=== PATIENT | female | born 1960 | race Caucasian/White ===

== ENCOUNTER 2019-06-09 22:57 | Inpatient (IN) | payer OTHER ==
[~2019-06-09] VITALS: Ht 175.3 cm; Wt 108.6 kg
[~2019-06-09 22:57] MED LIST: CALC-98 PO; CELE100C PO; CETI10CA PO; ESOM20SU PO; FLUT1DIS3 IH; GABA600T7 PO; MONT10TA80 PO; SIMV10TA PO; TRAM50TA PO
--- NOTE | 2019-06-09 23:00 | ED.ADGEN ---
Past History Past Medical History: Arthritis, Asthma, GERD, High Cholesterol, Other Past Medical History anisocytosis Past Surgical History: Other Past Surgical History Carpal tunnel release x2 Smoking: Non-smoker Alcohol Use: Occasionally Drug Use: None Adult General Chief Complaint Chief Complaint " I have these episodes where I get really bad back pain.. that radiates to my chest.. I have arthritis and if I bang my back on a door threshold.. it seems to help the back spasm and pain.. and it goes away.." HPI HPI Patient is a 59 year old FEMALE who presents with above hx and complaints of mid back pain that radiates to chest . Has had several episodes of this pain off an on for weeks.. Tonight she has had two episodes..that were close together. Pt. follows at [facility]. Patient denies prior history of cardiac problems. Patient has history of hypertension. Patient has never smoked. Patient normally healthy. Patient immunosuppression. No history of cancer . She has history of GERD, elevated lipids, asthma , abnormal blood cells, and arthritis. No history of trauma. Review of Systems Review of Systems Constitutional: Denies fever or chills [] Eyes: Denies change in visual acuity, redness, or eye pain [] HENT: Denies nasal congestion or sore throat [] Respiratory: Denies cough or shortness of breath [] Cardiovascular: No additional information not addressed in HPI [] GI: Denies abdominal pain, nausea, vomiting, bloody stools or diarrhea [] : Denies dysuria or hematuria [] Musculoskeletal: Denies back pain or joint pain []complains of thoracic back pain Integument: Denies rash or skin lesions [] Neurologic: Denies headache, focal weakness or sensory changes [] Endocrine: Denies polyuria or polydipsia [] All other systems were reviewed and found to be within normal limits, except as documented in this note. Family History Family History Father had abnormal blood cell and hypertension Mother had hypertension and history of triple bypass and pacer placement 3 sisters onehad lung cancer and hepatitis, and 2 sisters that have diabetes Current Medications Current Medications Current Medications Medications (Trade) Dose Ordered Sig/Heath Start Time Stop Time Status Last Admin Dose Admin Acetaminophen (Tylenol) 650 mg PRN Q4HRS PRN 06/10/19 01:00 06/11/19 00:59 Aspirin (Children'S Aspirin) 324 mg 1X ONCE 06/09/19 23:30 06/09/19 23:31 DC 06/09/19 23:33 324 MG Info (Do NOT chart on this entry -- for MONITORING) 1 each PRN DAILY PRN 06/10/19 00:45 06/12/19 00:44 Iohexol (Omnipaque 350 Mg/ml) 100 ml 1X ONCE 06/10/19 01:00 06/10/19 01:01 DC 06/10/19 00:57 100 ML Lactated Ringer's 1,000 ml @ 100 mls/hr Q10H 06/09/19 23:30 06/10/19 09:29 06/09/19 23:33 100 MLS/HR Ondansetron HCl (Zofran) 4 mg PRN Q4HRS PRN 06/10/19 01:00 06/11/19 00:59 Allergies Allergies Allergies Coded Allergies Type Severity Reaction Last Updated Verified Penicillins Allergy Unknown 03/27/14 Yes Sulfa (Sulfonamide Antibiotics) Allergy Unknown 06/09/19 Yes Physical Exam Physical Exam Constitutional: no acute distress, non-toxic appearance. [] HENT: Normocephalic, atraumatic, bilateral external ears normal, oropharynx moist, no oral exudates, nose normal. [] Eyes: PERRLA, EOMI, conjunctiva normal, no discharge. [] Glasses. Neck: Normal range of motion, no tenderness, supple, no stridor. [] Cardiovascular:Heart rate regular rhythm, no murmur [] Lungs & Thorax: Bilateral breath sounds equal at apexes on auscultation [] Abdomen: Bowel sounds normal, soft, no tenderness, no masses, no pulsatile masses. [] Obese. Skin: Warm, dry, no erythema, no rash. [] Back: No tenderness, no CVA tenderness. [] Extremities: No tenderness, no cyanosis, no clubbing, ROM intact, no edema. [] Scars on wrists. No cording appreciated in legs . Neurologic: Alert and oriented X 3, normal motor function, normal sensory function, no focal deficits noted. [] Psychologic: Affect anxious, judgement normal, mood normal. [] Current Patient Data Vital Signs Vital Signs Date Time Temp Pulse Resp B/P (MAP) Pulse Ox O2 Delivery O2 Flow Rate FiO2 06/09/19 22:59 98.4 68 14 98 Room Air Lab Results Laboratory Tests Test 06/09/19 23:20 06/10/19 00:20 White Blood Count 7.8 x10^3/uL (4.0-11.0) Red Blood Count 5.95 x10^6/uL (3.50-5.40) H Hemoglobin 12.8 g/dL (12.0-15.5) Hematocrit 40.4 % (36.0-47.0) Mean Corpuscular Volume 68 fL (79-100) L Mean Corpuscular Hemoglobin 22 pg (25-35) L Mean Corpuscular Hemoglobin Concent 32 g/dL (31-37) Red Cell Distribution Width 16.8 % (11.5-14.5) H Platelet Count 251 x10^3/uL (140-400) Neutrophils (%) (Auto) 56 % (31-73) Lymphocytes (%) (Auto) 30 % (24-48) Monocytes (%) (Auto) 12 % (0-9) H Eosinophils (%) (Auto) 2 % (0-3) Basophils (%) (Auto) 1 % (0-3) Neutrophils # (Auto) 4.4 x10^3uL (1.8-7.7) Lymphocytes # (Auto) 2.4 x10^3/uL (1.0-4.8) Monocytes # (Auto) 0.9 x10^3/uL (0.0-1.1) Eosinophils # (Auto) 0.1 x10^3/uL (0.0-0.7) Basophils # (Auto) 0.0 x10^3/uL (0.0-0.2) Platelet Estimate Adequate (ADEQUATE) Polychromasia Slight Hypochromasia Mod Anisocytosis Slight Ovalocytes Occ Prothrombin Time 9.5 SEC (9.4-11.4) Prothrombin Time INR 0.9 (0.9-1.1) Activated Partial Thromboplast Time 22 SEC (23-33) L D-Dimer (Elyse) 0.52 mg/L (0.00-0.50) H Sodium Level 141 mmol/L (136-145) Potassium Level 3.7 mmol/L (3.5-5.1) Chloride Level 104 mmol/L (98-107) Carbon Dioxide Level 30 mmol/L (21-32) Anion Gap 7 (6-14) Blood Urea Nitrogen 21 mg/dL (7-20) H Creatinine 1.0 mg/dL (0.6-1.0) Estimated GFR (Cockcroft-Gault) 56.4 Glucose Level 134 mg/dL (70-99) H Calcium Level 8.9 mg/dL (8.5-10.1) Magnesium Level 2.0 mg/dL (1.8-2.4) Total Bilirubin 0.5 mg/dL (0.2-1.0) Direct Bilirubin 0.2 mg/dL (0.0-0.2) Aspartate Amino Transferase (AST) 16 U/L (15-37) Alanine Aminotransferase (ALT) 38 U/L (14-59) Alkaline Phosphatase 129 U/L (46-116) H Creatine Kinase 63 U/L (26-192) Troponin I Quantitative < 0.017 ng/mL (0-0.055) EB-Doa-R-Type Natriuretic Peptide 65 pg/mL (0-124) Total Protein 6.8 g/dL (6.4-8.2) Albumin 3.3 g/dL (3.4-5.0) L Lipase 347 U/L (73-393) Urine Collection Type Unknown Urine Color Yellow Urine Clarity Clear Urine pH 6.0 Urine Specific [place] 1.025 Urine Protein Neg (NEG-TRACE) Urine Glucose (UA) Neg mg/dL (NEG) Urine Ketones (Stick) Neg mg/dL (NEG) Urine Blood Neg (NEG) Urine Nitrite Neg (NEG) Urine Bilirubin Neg (NEG) Urine Urobilinogen Dipstick 1 mg/dL (0.2 mg/dL) Urine Leukocyte Esterase Neg (NEG) Urine RBC 0 /HPF (0-2) Urine WBC Occ /HPF (0-4) Urine Squamous Epithelial Cells Occ /LPF Urine Bacteria 0 /HPF (0-FEW) Urine Opiates Screen Neg (NEG) Urine Methadone Screen Neg (NEG) Urine Barbiturates Neg (NEG) Urine Phencyclidine Screen Neg (NEG) Urine Amphetamine/Methamphetamine Neg (NEG) Urine Benzodiazepines Screen Neg (NEG) Urine Cocaine Screen Neg (NEG) Urine Cannabinoids Screen Neg (NEG) Urine Ethyl Alcohol Neg (NEG) EKG EKG My interpretation EKG shows a sinus rhythm at 60 bpm. There is nonspecific contour changes anterior septal region. But no findings acute STEMI with contralateral changes.[] Radiology/Procedures Radiology/Procedures [][address] [place] [id number] IMAGING REPORT Signed PATIENT: TREY CORNELIUS RACCOUNT: [id number] : 1960 LOCATION: ER AGE: 59 SEX: F EXAM STATUS: REG ER ORD. PHYSICIAN: CRISTOFER LOCKWOOD MD REASON: Chest and upper back pain PROCEDURE: CT ANGIOGRAPHY CHEST CTA chest with contrast dated 06/10/2019. No comparison available. Clinical data indication: Chest and upper back pain. TECHNIQUE: Contiguous axial imaging of the chest performed following the intravenous administration of 99 cc Isovue-370. Study was performed as dedicated PE protocol with thin cut coronal MIPS 3-D reconstruction. One or more of the following individualized dose reduction techniques were utilized for this examination: 1. Automated exposure control 2. Adjustment of the mA and/or kV according to patient size 3. Use of iterative reconstruction technique. FINDINGS: Contrast bolus is adequate. No evidence of central, lobar or segmental pulmonary embolus. Subsegmental branches are not well evaluated based on technique. Heart size is upper limits of normal. No pericardial effusion. Coronary artery calcifications. No mediastinal, hilar or axillary lymphadenopathy. Thyroid gland is unremarkable. Central airways are patent. Lungs are clear. No consolidation or pleural effusion. No pneumothorax. Limited images of the upper abdomen unremarkable. No acute bony abnormality. Multilevel spondylosis. IMPRESSION: 1. No evidence of central, lobar or segmental pulmonary embolus. 2. Clear lungs. 3. Coronary artery calcifications. Electronically signed by: Ti Langley MD (06/10/2019 1:55 AM) [facility] DICTATED AND SIGNED BY: TI LANGLEY MD DATE: 06/10/19 0155 CC: CRISTOFER LOCKWOOD MD; BERTA GUERRA DO IMAGING REPORT Signed PATIENT: TREY CORNELIUS RACCOUNT: [id number] : 1960 LOCATION: ER AGE: 59 SEX: F EXAM STATUS: PRE ER ORD. PHYSICIAN: CRISTOFER LOCKWOOD MD REASON: Chest pain PROCEDURE: PORTABLE CHEST 1V Single view chest dated 06/09/2019. Comparison made to 10/07/2013. Clinical data indication: Chest pain. FINDINGS: Single upright portable exam performed. Heart and mediastinal contours are stable. Lungs are somewhat hyperinflated but otherwise clear. No consolidation or pleural effusion. No pneumothorax. IMPRESSION: No acute radiographic abnormality. Electronically signed by: Ti Langley MD (06/09/2019 11:35 PM) [id number] DICTATED AND SIGNED BY: TI LANGLEY MD DATE: 06/09/19 9605 CC: CRISTOFER LOCKWOOD MD; BERTA GUERRA DO ~ Course & Med Decision Making Course & Med Decision Making Pertinent Labs and Imaging studies reviewed. (See chart for details) Heart score 4-[address] Villalba with cardiology consult [] Final Impression Final Impression 1. Back Pain 2. Chest Pain[] 3. Microcytic hypochromic indices 4. Hx of Arthritis- DJD 5. Mild Elevation of D-dimer 6. Cardica Vessel Calcifications Dragon Disclaimer Dragon Disclaimer This electronic medical record was generated, in whole or in part, using a voice recognition dictation system. Dragon Disclaimer This chart was dictated in whole or in part using Voice Recognition software in a busy, high-work load, and often noisy Emergency Department environment. It may contain unintended and wholly unrecognized errors or omissions. CRISTOFER LOCKWOOD MD Jun 09, 2019 23:00
[2019-06-09] MEDS ORDERED: ASPIRIN 81 MG TAB.CHEW PO ONE (23:30)
[2019-06-09] MEDS ORDERED: IV RINGERS SOLUTION,LACTATED 1,000 ML IV SCH (23:30)
--- NOTE | 2019-06-09 23:37 | RAD ---
Single view chest dated 06/09/2019. Comparison made to 10/07/2013. Clinical data indication: Chest pain. FINDINGS: Single upright portable exam performed. Heart and mediastinal contours are stable. Lungs are somewhat hyperinflated but otherwise clear. No consolidation or pleural effusion. No pneumothorax. IMPRESSION: No acute radiographic abnormality. Electronically signed by: Ti Langley MD (06/09/2019 11:35 PM) [facility]
[2019-06-09 23:45] LABS: BASO % 1 % (0-3); EOS # 0.1 x10^3/uL (0.0-0.7); EOS % 2 % (0-3); HEMATOCRIT 40.4 % (36.0-47.0); HEMOGLOBIN 12.8 g/dL (12.0-15.5); LYMPH # 2.4 x10^3/uL (1.0-4.8); LYMPH % 30 % (24-48); MEAN CORPUSCULAR HEMOGLOBIN 22 pg (25-35); MEAN CORPUSCULAR HGB CONC 32 g/dL (31-37); MEAN CORPUSCULAR VOLUME 68 fL (79-100); MONO # 0.9 x10^3/uL (0.0-1.1); MONO % 12 % (0-9); NEUT # 4.4 x10^3uL (1.8-7.7); NEUT % 56 % (31-73); PLATELET COUNT 251 x10^3/uL (140-400); RED BLOOD COUNT 5.95 x10^6/uL (3.50-5.40); RED CELL DISTRIBUTION WIDTH 16.8 % (11.5-14.5); WHITE BLOOD COUNT 7.8 x10^3/uL (4.0-11.0)
[2019-06-10 00:07] LABS: ALBUMIN 3.3 g/dL (3.4-5.0); CALCIUM 8.9 mg/dL (8.5-10.1); DIRECT BILIRUBIN 0.2 mg/dL (0.0-0.2); GFR 56.4; POTASSIUM 3.7 mmol/L (3.5-5.1); TOTAL BILIRUBIN 0.5 mg/dL (0.2-1.0); TOTAL PROTEIN 6.8 g/dL (6.4-8.2)
[2019-06-10 00:18] LABS: ANISOCYTOSIS SLIGHT; HYPOCHROMIA MOD; PLT ESTIMATE ADEQUATE (ADEQUATE); POLYCHROMASIA SLIGHT
[2019-06-10 00:19] LABS: OVALOCYTES OCC
[2019-06-10] MEDS ORDERED: CONTRAST GIVEN MC PRN (00:45)
[2019-06-10 00:48] LABS: BARBITURATES NEG (NEG); BENZODIAZEPINES NEG (NEG); CANNABINOIDS NEG (NEG); COCAINE NEG (NEG); METHADONE NEG (NEG); OPIATES NEG (NEG); PHENCYCLIDINE NEG (NEG)
[2019-06-10 00:51] LABS: BACTERIA,URINE 0 /HPF (0-FEW); BILIRUBIN,URINE NEG (NEG); CLARITY,URINE CLEAR; COLOR,URINE YELLOW; GLUCOSE,URINE NEG (NEG); NITRITE,URINE NEG (NEG); RBC,URINE 0 /HPF (0-2); SQUAMOUS EPITHELIAL CELL,UR OCC /LPF; UROBILINOGEN,URINE 1 mg/dL (0.2 mg/dL); WBC,URINE OCC /HPF (0-4)
[2019-06-10 00:54] LABS: AMPHETAMINE/METHAMPHETAMINE NEG (NEG)
[2019-06-10] MEDS ORDERED: ONDANSETRON PF 4 MG/2 ML VIAL. IV PRN (01:00)
[2019-06-10] MEDS ORDERED: ACETAMINOPHEN 325 MG TABLET PO PRN (01:00)
[2019-06-10] MEDS ORDERED: IOHEXOL 350 MG/ML 100 ML VIAL. IV ONE (01:00)
--- NOTE | 2019-06-10 01:58 | RAD ---
CTA chest with contrast dated 06/10/2019. No comparison available. Clinical data indication: Chest and upper back pain. TECHNIQUE: Contiguous axial imaging of the chest performed following the intravenous administration of 99 cc Isovue-370. Study was performed as dedicated PE protocol with thin cut coronal MIPS 3-D reconstruction. One or more of the following individualized dose reduction techniques were utilized for this examination: 1. Automated exposure control 2. Adjustment of the mA and/or kV according to patient size 3. Use of iterative reconstruction technique. FINDINGS: Contrast bolus is adequate. No evidence of central, lobar or segmental pulmonary embolus. Subsegmental branches are not well evaluated based on technique. Heart size is upper limits of normal. No pericardial effusion. Coronary artery calcifications. No mediastinal, hilar or axillary lymphadenopathy. Thyroid gland is unremarkable. Central airways are patent. Lungs are clear. No consolidation or pleural effusion. No pneumothorax. Limited images of the upper abdomen unremarkable. No acute bony abnormality. Multilevel spondylosis. IMPRESSION: 1. No evidence of central, lobar or segmental pulmonary embolus. 2. Clear lungs. 3. Coronary artery calcifications. Electronically signed by: Ti Langley MD (06/10/2019 1:55 AM) [facility]
--- NOTE | 2019-06-10 02:02 | RAD ---
CT THORACIC SPINE RECONSTRUCT dated 06/10/2019 12:37 AM Indication: Back pain. Chest pain.. Comparison: No comparison is available. Technique: Contiguous axial imaging of the thoracic spine performed with thin cut coronal and sagittal reconstruction. One or more of the following individualized dose reduction techniques were utilized for this examination: 1. Automated exposure control 2. Adjustment of the mA and/or kV according to patient size 3. Use of iterative reconstruction technique Findings: Sagittal alignment is anatomic. Vertebral body heights are maintained. Posterior elements are intact. No evidence of fracture. Mild endplate hypertrophic changes throughout with multilevel mild disc space narrowing. Small central disc osteophyte complex at T8-T9 results in no significant central canal compromise. Foramen are adequate. No paraspinous soft tissue abnormality. IMPRESSION: 1. No evidence of fracture or malalignment. 2. Mild multilevel thoracic spondylosis with no evidence of neural compression. Electronically signed by: Ti Langley MD (06/10/2019 1:59 AM) [facility]
[2019-06-10] MEDS ORDERED: ANTI-COAG MONITOR BY PHARMACY. MC PRN (02:30)
[2019-06-10] MEDS: ENOXAPARIN ** NOTE DOSE ** SYRINGE SQ SCH ×2 (02:30→09:17)
[2019-06-10 03:27] VITALS: BP 128/76
[2019-06-10] MEDS ORDERED: TIZA4TAB2 PO (04:35)
[2019-06-10] MEDS ORDERED: GABA800T5 PO (04:35)
[2019-06-10] MEDS ORDERED: RABE20TA18 PO (04:35)
[2019-06-10] MEDS ORDERED: ATOR20TA58 PO (04:35)
[2019-06-10] MEDS ORDERED: DOLOBID PO (04:35)
[2019-06-10 05:47] VITALS: BP 125/73
--- NOTE | 2019-06-10 06:40 | EKG ---
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
[2019-06-10] MEDS ORDERED: ASPIRIN 81 MG TAB.CHEW PO SCH (09:00)
[2019-06-10 10:58] VITALS: BP 118/73
--- NOTE | 2019-06-10 12:36 | HP ---
ADMIT DATE: 06/10/2019 HISTORY OF PRESENT ILLNESS: The patient is a 59-year-old female patient who came to the Emergency Room complaining of episodic back pain that radiates to her chest and that she describes as back spasm and normally lasts for a short period of time and goes away and she apparently has had several episodes of chest pain off and on for weeks and tonight, she has had 2 episodes that were close together. She normally follows at [facility]. Denied any prior history of cardiac problems. She stated the pain has gone up to her neck also. Denied any nausea or vomiting. Denied any diaphoresis, denied any shortness of breath. The pain comes out of blue while watching TV. She was extensively investigated. She was seen in the Emergency Room, has had extensive work that included an EKG, which showed that she was in sinus rhythm, in fact with a heart rate in the 60 beats per minute, nonspecific anteroseptal changes, but no finding of acute ST segment elevation myocardial infarction, has had a chest x-ray, which was unremarkable and showed no acute cardiopulmonary abnormality. Her thoracic spine CT showed no evidence of fracture or malalignment, mild multilevel thoracic spondylosis, no evidence of neural compression and she did have a CT angiography, which basically showed no evidence of central lobar or segmental pulmonary emboli, clear lungs, coronary artery calcification. Her first set of cardiac enzyme was less than 0.017. The patient was admitted. We will do 2 more sets of cardiac enzyme. We will consult the cardiology, although the pain is somewhat atypical. PAST MEDICAL HISTORY: Significant for hyperlipidemia, generalized osteoarthritis, degenerative disk disease, allergic rhinitis, bronchial asthma. PAST SURGICAL HISTORY: Significant for bilateral carpal tunnel release, left ulnar nerve transposition, bunionectomy, bilateral cataract extraction, tonsillectomy, and colonoscopy. ALLERGIES: She is allergic to PENICILLIN and SULFA DRUGS. MEDICATIONS: She is currently on following medications: She is on gabapentin 800 mg twice a day for neck pain, Advair Diskus 250/50 one inhalation twice a day, Singulair 10 mg at bedtime, Zyrtec 10 mg daily, tramadol 50 mg twice a day, Lipitor 20 mg at bedtime, Dolobid 250 mg twice a day, Aciphex 40 mg daily and tizanidine 4 mg 3 times a day as needed. FAMILY HISTORY: She has 3 sisters, 2 older and 1 younger. The oldest has lung cancer and hepatitis C. The second one has diabetes and the younger one also has diabetes. Her father at the age of 74 because of hypertension, prostate cancer. Mother at the age of 76 because of breast and colon cancer. She is also known to have coronary artery disease requiring bypass surgery, osteomyelitis and permanent pacemaker placement. SOCIAL HISTORY: She is , has 2 daughters. She does not smoke, drinks alcohol occasionally. Does not use any drugs. 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 REVIEW OF SYSTEMS: The patient denied any blurring of vision, cataract, glaucoma or macular degeneration. Denied any earache, tinnitus or sensorineural deafness. Denied any nosebleeds, stuffy nose or postnasal drip. Denied any sore throat, sore tongue, toothache, hoarseness of voice or difficulty swallowing. Denied any nausea, vomiting, diarrhea or constipation. Denied any hematemesis, melena or hematochezia. Denied any dysuria, frequency or hematuria. She did complain of chest pain that radiates from her back pain. Denied any orthopnea or paroxysmal nocturnal dyspnea. Denied any cough, phlegm or hemoptysis. Denied any dizziness, lightheadedness, or vertigo. PHYSICAL EXAMINATION: GENERAL: On arrival to the Emergency Room, the patient looked well and was clearly in no apparent respiratory distress. No pallor, jaundice, cyanosis or thyromegaly. No jugular venous distention. No limb edema. VITAL SIGNS: Her heart rate was 68, blood pressure was 128/76, temperature was 98.4, respiratory rate was 14 and oxygen saturation was 97%. HEAD, EYES, EARS, NOSE AND THROAT: Showed normocephalic, atraumatic. NECK: Supple. HEART: Showed normal first and second heart sounds with no gallop or murmur. CHEST: Clear to auscultation. No crepitation or rhonchi. ABDOMEN: Distended, soft, nontender. NEUROLOGIC: She is awake, alert, responding appropriately. All cranial nerves intact. EXTREMITIES: She moves extremities without difficulty. She ambulates without assistance or assistive devices. LABORATORY DATA: Her lab work on arrival showed a prothrombin time of 9.5, INR of 0.9, aPTT was 22, and D-dimer was 0.52. White cell count was 7800, hemoglobin 13, hematocrit 40, MCV 68 and platelet count 251,000. Her chemistry showed a serum sodium 141, potassium 3.7, chloride 104, bicarbonate 30, anion gap of 7, BUN 21, creatinine 1, estimated GFR was 56 mL per minute. Her glucose 134, calcium was 8.9, magnesium 2. Total bilirubin, AST, ALT, alkaline phosphatase were normal. CK was 63. First set of troponin was less than 0.017. Beta-natriuretic peptide was 65. Total protein was 6.8, albumin 3.3 and lipase was 347. Urinalysis was essentially unremarkable. Toxic screen was negative. I stated her chest x-ray showed no acute radiographic abnormality and thoracic spine CT showed no evidence of fracture or malalignment. Mild multilevel thoracic spondylosis with no evidence of neural compression and her CT angiography of the chest showed that there is no evidence of central lobar or segmental pulmonary emboli, clear lungs, coronary artery calcification. Plan is to do 2 more sets of cardiac enzyme, consult the Cardiology team and decide on further evaluation accordingly. CARY ALBA MD DR: ANN MARIE/sneha JOB#: [id number] / [id number]
--- NOTE | 2019-06-10 13:10 | PDOC2 ---
CARDIAC CONSULT DATE OF CONSULT Date Of Consult DATE: 06/10/19 TIME: 13:08 REASON FOR CONSULT Reason for Consult Chest pain REFERRING PHYSICIAN Referring Physician Dr. Baez SOURCE Source: Chart review, Patient HPI History of Present Illness This is a 59 yo female who presented secondary to back pain. Patient reports intermittent upper back spasms for the last couple of years. Normally has them once every 6 months. Had one last week. Reports spasm in her upper back. Radiates through to her central chest and up to her right ear. No associated shortness of breath, dizziness, diaphoresis, palpitations, or nausea/vomiting. Was recommended to go the the ED if pain returns. Patient reports she was laying in bed late last night and began having spasm again so she came to the ED for further evaluation and treatment as directed. Normally walks 45 minutes per day without chest pain or difficulty. No recent KHOURY or illness/fevers. PAST MEDICAL HISTORY Cardiovascular: hyperipidemia GI: GERD Musculoskeletal: Osteoarthritis PAST SURGICAL HISTORY Past Surgical History bilateral carpal tunnel surgery, left elbow surgery FAMILY HISTORY Family History: Cancer (breast, colon, lung ), Coronary Artery Disease (mother CABG at 68), Diabetes SOCIAL HISTORY Smoke: No ALCOHOL: occassional Drugs: None Lives: with Family CURRENT MEDICATIONS Current Medications Current Medications Aspirin (Children'S Aspirin) 324 mg 1X ONCE PO Last administered on 06/09/19at 23:33; Start 06/09/19 at 23:30; Stop 06/09/19 at 23:31; Status DC Lactated Ringer's 1,000 ml @ 100 mls/hr Q10H IV Last administered on 06/09/19at 23:33; Start 06/09/19 at 23:30; Stop 06/10/19 at 09:29; Status DC Iohexol (Omnipaque 350 Mg/ml) 100 ml 1X ONCE IV Last administered on 06/10/19at 00:57; Start 06/10/19 at 01:00; Stop 06/10/19 at 01:01; Status DC Info (Do NOT chart on this entry -- for MONITORING) 1 each PRN DAILY PRN MC SEE COMMENTS; Start 06/10/19 at 00:45; Stop 06/12/19 at 00:44 Ondansetron HCl (Zofran) 4 mg PRN Q4HRS PRN IV NAUSEA/VOMITING; Start 06/10/19 at 01:00; Stop 06/11/19 at 00:59 Acetaminophen (Tylenol) 650 mg PRN Q4HRS PRN PO FEVER; Start 06/10/19 at 01:00; Stop 06/11/19 at 00:59 Aspirin (Children'S Aspirin) 81 mg DAILY PO Last administered on 06/10/19at 09:17; Start 06/10/19 at 09:00 Enoxaparin Sodium (Lovenox 100mg Syringe) 100 mg BID SQ Last administered on 06/10/19at 09:17; Start 06/10/19 at 02:30 Info (Anti-Coagulation Monitoring By Pharmacy) 1 each PRN DAILY PRN MC SEE COMMENTS; Start 06/10/19 at 02:30; Stop 06/10/19 at 09:03; Status DC Active Scripts Active Reported [Dolobid] 250 Mg PO BID Tizanidine Hcl (Tizanidine HCl) 4 Mg Tablet 4 Mg PO PRN Q8HRS PRN Aciphex (Rabeprazole Sodium) 20 Mg Tablet.dr 40 Mg PO DAILY Atorvastatin Calcium 20 Mg Tablet 1 Tab PO DAILY Gabapentin 800 Mg Tablet 800 Mg PO BID Advair 250-50 Diskus (Fluticasone/Salmeterol) 1 Each Disk.w.dev 1 Puff IH BID Tramadol Hcl (Tramadol HCl) 50 Mg Tablet 50 Mg PO BID Zyrtec (Cetirizine Hcl) 10 Mg Capsule 10 Mg PO Singulair Tablet (Montelukast Sodium) 10 Mg Tablet 10 Mg PO ALLERGIES Allergies: Coded Allergies: Penicillins (Verified Allergy, Unknown, 03/27/14) Sulfa (Sulfonamide Antibiotics) (Verified Allergy, Unknown, 06/09/19) ROS Review of Systems 14 point ROS conducted with pertinent positives noted above in HPI. PHYSICAL EXAM General: Alert, Oriented X3, Cooperative, No acute distress HEENT: Atraumatic, Mucous membr. moist/pink Lungs: Clear to auscultation, Normal air movement Heart: Regular rate, Normal S1, Normal S2 Abdomen: Soft, No tenderness Extremities: No edema, Normal pulses Skin: No breakdown Neuro: Normal speech, Strength at 5/5 X4 ext, Sensation intact Psych/Mental Status: Mental status NL, Mood NL MUSCULOSKELETAL: No deformity VITALS Vital Signs Vital Signs Date Time Temp Pulse Resp B/P (MAP) Pulse Ox O2 Delivery O2 Flow Rate FiO2 06/10/19 10:58 98.2 69 20 118/73 (88) 96 Room Air LABS LABS Laboratory Tests Test 06/09/19 23:20 06/10/19 00:20 06/10/19 12:07 White Blood Count 7.8 x10^3/uL (4.0-11.0) Red Blood Count 5.95 x10^6/uL (3.50-5.40) Hemoglobin 12.8 g/dL (12.0-15.5) Hematocrit 40.4 % (36.0-47.0) Mean Corpuscular Volume 68 fL (79-100) Mean Corpuscular Hemoglobin 22 pg (25-35) Mean Corpuscular Hemoglobin Concent 32 g/dL (31-37) Red Cell Distribution Width 16.8 % (11.5-14.5) Platelet Count 251 x10^3/uL (140-400) Neutrophils (%) (Auto) 56 % (31-73) Lymphocytes (%) (Auto) 30 % (24-48) Monocytes (%) (Auto) 12 % (0-9) Eosinophils (%) (Auto) 2 % (0-3) Basophils (%) (Auto) 1 % (0-3) Neutrophils # (Auto) 4.4 x10^3uL (1.8-7.7) Lymphocytes # (Auto) 2.4 x10^3/uL (1.0-4.8) Monocytes # (Auto) 0.9 x10^3/uL (0.0-1.1) Eosinophils # (Auto) 0.1 x10^3/uL (0.0-0.7) Basophils # (Auto) 0.0 x10^3/uL (0.0-0.2) Platelet Estimate Adequate (ADEQUATE) Polychromasia Slight Hypochromasia Mod Anisocytosis Slight Ovalocytes Occ Prothrombin Time 9.5 SEC (9.4-11.4) Prothromb Time International Ratio 0.9 (0.9-1.1) Activated Partial Thromboplast Time 22 SEC (23-33) D-Dimer (Leyse) 0.52 mg/L (0.00-0.50) Sodium Level 141 mmol/L (136-145) Potassium Level 3.7 mmol/L (3.5-5.1) Chloride Level 104 mmol/L (98-107) Carbon Dioxide Level 30 mmol/L (21-32) Anion Gap 7 (6-14) Blood Urea Nitrogen 21 mg/dL (7-20) Creatinine 1.0 mg/dL (0.6-1.0) Estimated GFR (Cockcroft-Gault) 56.4 Glucose Level 134 mg/dL (70-99) Calcium Level 8.9 mg/dL (8.5-10.1) Magnesium Level 2.0 mg/dL (1.8-2.4) Total Bilirubin 0.5 mg/dL (0.2-1.0) Direct Bilirubin 0.2 mg/dL (0.0-0.2) Aspartate Amino Transf (AST/SGOT) 16 U/L (15-37) Alanine Aminotransferase (ALT/SGPT) 38 U/L (14-59) Alkaline Phosphatase 129 U/L (46-116) Creatine Kinase 63 U/L (26-192) Troponin I Quantitative < 0.017 ng/mL (0-0.055) < 0.017 ng/mL (0-0.055) YR-Xll-T-Type Natriuretic Peptide 65 pg/mL (0-124) Total Protein 6.8 g/dL (6.4-8.2) Albumin 3.3 g/dL (3.4-5.0) Lipase 347 U/L (73-393) Urine Collection Type Unknown Urine Color Yellow Urine Clarity Clear Urine pH 6.0 Urine Specific [place] 1.025 Urine Protein Neg (NEG-TRACE) Urine Glucose (UA) Neg mg/dL (NEG) Urine Ketones (Stick) Neg mg/dL (NEG) Urine Blood Neg (NEG) Urine Nitrite Neg (NEG) Urine Bilirubin Neg (NEG) Urine Urobilinogen Dipstick 1 mg/dL (0.2 mg/dL) Urine Leukocyte Esterase Neg (NEG) Urine RBC 0 /HPF (0-2) Urine WBC Occ /HPF (0-4) Urine Squamous Epithelial Cells Occ /LPF Urine Bacteria 0 /HPF (0-FEW) Urine Opiates Screen Neg (NEG) Urine Methadone Screen Neg (NEG) Urine Barbiturates Neg (NEG) Urine Phencyclidine Screen Neg (NEG) Urine Amphetamine/Methamphetamine Neg (NEG) Urine Benzodiazepines Screen Neg (NEG) Urine Cocaine Screen Neg (NEG) Urine Cannabinoids Screen Neg (NEG) Urine Ethyl Alcohol Neg (NEG) ASSESSMENT/PLAN Assessment/Plan 1. Back/chest pain, atypical. Troponin negative x2- AMI ruled out. 2. Hyperlipidemia 3. GERD 4. CAD; coronary artery calcifications noted on CTA 5. Elevated d-dimer; LE Doppler for DVT, CTA 6. Elevated glucose; as per PCP Recommendations Lipid panel ASA, statin Echo to assess LV systolic function Will arrange for outpatient stress test and followup based upon risk factors. LAN LOPES APRN Jun 10, 2019 13:10
[2019-06-10] MEDS ORDERED: tiZANidine 4 MG TABLET. PO PRN (13:15)
--- NOTE | 2019-06-10 13:16 | RAD ---
LEFT LEG VENOUS DOPPLER STUDY: Clinical indications: Elevated d-dimer. Findings: Duplex sonography (including friedman scale evaluation and color flow and waveform spectral analysis) of the proximal aspect of the greater saphenous vein and the proximal aspect of the profunda femoral vein and the entire length of the common femoral and superficial femoral and popliteal veins and the tibioperoneal trunk and the proximal aspect of the posterior tibial and peroneal veins of the left leg was performed. Normal compressibility, augmentation of color Doppler flow after calf compression, and respiratory variation of Doppler flow is seen. Thus, there are no sonographic findings of deep venous thrombosis within these veins. Impression: There are no sonographic findings of deep venous thrombosis within the veins discussed above of the left lower extremity. RIGHT LEG VENOUS DOPPLER STUDY: Clinical indications: Elevated d-dimer. Findings: Duplex sonography (including friedman scale evaluation and color flow and waveform spectral analysis) of the proximal aspect of the greater saphenous vein and proximal aspect of the profunda femoral vein and the entire length of the common femoral and superficial femoral and popliteal veins and the tibioperoneal trunk and the proximal aspect of the posterior tibial and peroneal veins of the right leg was performed. Normal compressibility, augmentation of color Doppler flow after calf compression, and respiratory variation of Doppler flow is seen. Thus, there are no sonographic findings of deep venous thrombosis within these veins. Impression: There are no sonographic findings of deep venous thrombosis within the veins discussed above of the right lower extremity. Electronically signed by: Chaz Padilla MD (06/10/2019 1:13 PM) [id number]
[2019-06-10] MEDS ORDERED: CETIRIZINE HCL 10 MG TABLET PO SCH (13:30)
[2019-06-10] MEDS ORDERED: GABAPENTIN 400 MG CAPSULE. PO SCH (13:30)
[2019-06-10] MEDS ORDERED: traMADol 50 MG TABLET PO SCH (13:30)
[2019-06-10] MEDS ORDERED: ATORVASTATIN CALCIUM 20 MG TABLET PO SCH (13:30)
[2019-06-10] MEDS ORDERED: PANTOPRAZOLE 40 MG TABLET. PO SCH (13:30)
[2019-06-10] MEDS ORDERED: SALSALATE 500 MG PO SCH (13:30)
[2019-06-10 15:23] VITALS: BP 135/82
[2019-06-10] MEDS ORDERED: ALBUTEROL SULFATE 2.5 MG/3 ML NEBU. NEB SCH (18:00)
[2019-06-10] MEDS ORDERED: BUDESONIDE 0.5 MG/2 ML NEBU NEB SCH (20:00)
[2019-06-10 20:52] LABS: THYROID STIM HORMONE (TSH) 1.73 uIU/mL (0.358-3.740)
[2019-06-10] MEDS ORDERED: MONTELUKAST 10 MG TABLET. PO SCH (21:00)
[2019-06-10] MEDS ORDERED: NON FORMULARY ITEM (Fluticasone/Salmeterol (Advair 250-50 Diskus) 1 PUFF) IH SCH (21:00)
--- NOTE | 2019-06-10 21:17 | DS ---
DATE OF DISCHARGE: 06/10/2019 HOSPITAL COURSE: The patient is a 59-year-old female patient who was admitted with what she describes as a muscle spasm and back pain radiating to her chest and neck and it has been going on for the last 3 weeks, but has had 2 episodes yesterday and was admitted for further evaluation and treatment. She was extensively investigated and has had 2 sets of cardiac enzymes that were negative. She has had CT angio of the chest and thoracic spine. CT scan and bilateral lower extremity deep vein thrombosis and none of these showed any DVT, PE or aortic dissection. She was seen in consultation by the Cardiology team and the plan was to discharge her home and to arrange for an outpatient stress testing as well as an echocardiogram. PHYSICAL EXAMINATION: GENERAL: When I saw her this afternoon, she looked well and was clearly in no apparent respiratory distress. No pallor, jaundice, cyanosis, or thyromegaly. No jugular venous distension. No lower limb edema. VITAL SIGNS: Her heart rate was 67, blood pressure was 135/82, temperature was 97.6, respiratory rate 20, and oxygen saturation was 97%. HEAD, EYES, EARS, NOSE AND THROAT: Showed normocephalic, atraumatic. NECK: Supple. HEART: Showed normal first and second heart sounds with no gallop or murmur. CHEST: Clear to auscultation. No crepitation or rhonchi. ABDOMEN: Distended, soft, nontender. NEUROLOGIC: She was awake, alert, responding appropriately. All cranial nerves are intact. She moves extremities without difficulty. LABORATORY DATA: Her lab work showed that she has 2 sets of cardiac enzymes that were negative. All other lab works are stable and within acceptable range. DISCHARGE MEDICATIONS: She was discharged home to continue on atorvastatin calcium 20 mg at bedtime, cetirizine for Zyrtec 10 mg at bedtime, Dolobid 250 mg twice a day, Advair Diskus 250/50 one inhalation twice a day, gabapentin 800 mg twice a day, montelukast 10 mg at bedtime, Aciphex 40 mg once a day, tizanidine 4 mg every 8 hours and tramadol 50 mg twice a day. FINAL DISCHARGE DIAGNOSES: Back pain, chest pain atypical, myocardial infarction ruled out ____ hyperlipidemia, bronchial asthma, generalized osteoarthritis, degenerative disk disease, allergic rhinitis. The patient will follow with Cardiology team for outpatient stress testing as well as echocardiogram. CARY ALBA MD DR: ANN MARIE/sneha JOB#: [id number] / [id number]
== END 2019-06-10 16:00 | disposition home or self-care (01) | DRG 313 ==
LOC: ER 22:57 → 1 SOUTH 06-10 01:00
PROVIDERS: ADMIT Internal Medicine; ATTEND Internal Medicine
DX: R07.89 Other chest pain (principal); I10 Essential (primary) hypertension; K21.9 Gastro-esophageal reflux disease without esophagitis; E78.00 Pure hypercholesterolemia, unspecified; M15.9 Polyosteoarthritis, unspecified; J45.909 Unspecified asthma, uncomplicated; E78.5 Hyperlipidemia, unspecified; I25.10 Atherosclerotic heart disease of native coronary artery without angina pectoris; Z82.49 Family history of ischemic heart disease and other diseases of the circulatory system; Z83.3 Family history of diabetes mellitus; Z98.41 Cataract extraction status, right eye; Z98.42 Cataract extraction status, left eye; Z80.3 Family history of malignant neoplasm of breast; Z80.1 Family history of malignant neoplasm of trachea, bronchus and lung; Z80.0 Family history of malignant neoplasm of digestive organs; Z88.0 Allergy status to penicillin; Z88.2 Allergy status to sulfonamides
CPT/HCPCS: 36415; 71045; 71275; 80048; 80061; 80076; 80307; 81001; 82550; 83690; 83735; 83880; 84443; 84484; 85025; 85379; 85610; 85730; 93005; 93970; 94640; J1650; J7120; Q9967; 99285-25

== ENCOUNTER → 2019-07-26 | Outpatient (CLI) | payer OTHER ==
[~2019-07-26] MED LIST changes: +ATOR20TA58 PO; +DOLOBID PO; +GABA800T5 PO; +RABE20TA18 PO; +TIZA4TAB2 PO
--- NOTE | 2019-07-26 10:28 | CARD ---
MR#: [id number] Date of Study: 07/26/2019 Ordering Physician: JASPREET GALICIA, Referring Physician: JASPREET GALICIA, Tech: Rekha Jones PANDA APPROVED REPORT EXAM: Two-dimensional and M-mode echocardiogram with Doppler and color Doppler. Other Information Quality : AverageHR: 77bpm Rhythm : NSR INDICATION Chest Pain 2D DIMENSIONS RVDd2.6 (2.9-3.5cm)Left Atrium(2D)3.7 (1.6-4.0cm) IVSd1.1 (0.7-1.1cm)Aortic Root(2D)3.0 (2.0-3.7cm) LVDd5.6 (3.9-5.9cm)LVOT Diameter2.0 (1.8-2.4cm) PWd1.2 (0.7-1.1cm)LVDs4.0 (2.5-4.0cm) FS (%) 29.0 %SV84.5 ml LVEF(%)55.2 (>50%) M-Mode DIMENSIONS Left Atrium(MM)3.85 (2.5-4.0cm)Aortic Root2.92 (2.2-3.7cm) Aortic Valve AoV Peak Vincent.122.4cm/sAoV VTI25.3cm AO Peak GR.6.0mmHgLVOT Peak Vincent.79.5cm/s LVOT VTI 18.23cmAO Mean GR.3mmHg ARIELLE (VMAX)2.57ez0HEH (VTI)2.30cm2 Mitral Valve MV E Nmzntset81.7cm/sMV DECEL FRJM595wh MV A Shpxxrou20.5cm/sE/A Ratio1.2 Pulmonary Valve PV Peak Khnzmoyy73.3cm/sPV Peak Grad.3mmHg LEFT VENTRICLE The left ventricle is normal size. There is mild concentric left ventricular hypertrophy. The left ve ntricular systolic function is normal. The Ejection Fraction is 55-60%. There is normal LV segmental wall motion. RIGHT VENTRICLE The right ventricle is normal size. There is normal right ventricular wall thickness. The right ventr icular systolic function is normal. ATRIA The left atrium size is normal. The right atrium size is normal. The interatrial septum is intact wit h no evidence for an atrial septal defect or patent foramen ovale as noted on 2-D or Doppler imaging. AORTIC VALVE The aortic valve is normal in structure and function. The aortic valve is probably trileaflet. Dopple r and Color Flow revealed no significant aortic regurgitation. There is no significant aortic valvula r stenosis. There is no aortic valvular vegetation. MITRAL VALVE The mitral valve is normal in structure and function. There is no evidence of mitral valve prolapse. There is no mitral valve stenosis. Doppler and Color-flow revealed trace mitral regurgitation. TRICUSPID VALVE The tricuspid valve is normal in structure and function. Doppler and Color Flow revealed trace tricus pid regurgitation. There is no tricuspid valve prolapse or vegetation. There is no tricuspid valve st enosis. PULMONIC VALVE The pulmonic valve is not well visualized. GREAT VESSELS The aortic root is normal in size. The ascending aorta is normal in size. The IVC is normal in size a nd collapses >50% with inspiration. PERICARDIAL EFFUSION There is no evidence of significant pericardial effusion. Critical Notification Critical Value: No <Conclusion> The left ventricular systolic function is normal. The Ejection Fraction is 55-60%. There is normal LV segmental wall motion. Trace mitral regurgitation. Trace tricuspid regurgitation. There is no evidence of significant pericardial effusion. Signed by : Myron Neal, Electronically Approved : 07/26/2019 10:28:00
== END | disposition home or self-care (01) ==
LOC: ECHO 09:48
PROVIDERS: ATTEND Internal Medicine Cardiovascular Disease
DX: I25.10 Atherosclerotic heart disease of native coronary artery without angina pectoris (principal)
CPT/HCPCS: 93306